=== PATIENT | female | born 2000 | race Caucasian/White ===

== ENCOUNTER 2021-01-09 16:02 | Outpatient (RCR) | payer BC, SELFPAY | END 2021-03-17 23:59 | LOC: IMMUN 16:02 | PROVIDERS: Visit Provider Family Medicine | DX: Z23 Encounter for immunization (principal) | CPT/HCPCS: 0001A; 0002A; 91300 ==

== ENCOUNTER → 2021-09-17 16:14 | Outpatient (CLI) | payer BC, SELFPAY | PROVIDERS: Visit Provider Family Medicine | DX: Z23 Encounter for immunization (principal) ==

== ENCOUNTER 2021-10-08 19:24 | Emergency (ER) | payer BC, SELFPAY ==
[2021-10-08 19:26] VITALS: BP 135/91; PULSE 74; RESP 14; TEMP 36.5; O2SAT 96; BMI 31.4
[2021-10-08] MEDS: Lidocaine/Epi/Tetracaine 50 ML 1 APPLIC TOPICAL (20:28)
--- NOTE | 2021-10-08 22:06 | EDS_ITS ---
HPI History of Present Illness Chief Complaint: Other, Pain/Inj Narrative Narrative: 20-year-old female presents with nasal bone laceration which is superficial as well as nasal bone contusion. She has a lower lip laceration internally and a small superficial external lip laceration. He states he fell while playing basketball. She denies LOC. She is not on any blood thinners. She states she went to urgent care who told her to come to the emergency room. She is not had any epistaxis. She denies any jaw malocclusion. She has no headache or visual complaints. No nausea or vomiting. PFSH PFSH Medical History no medical history Home Medications Control 1 tab PO/SL DAILY 10/08/21 [History Last Taken Unknown] Allergy/AdvReac Type Severity Reaction Status Date / Time No Known Allergies Allergy Verified 10/08/21 19:25 Social History Smoking Status: Never smoker ROS ROS ED Constitutional Constitutional ED: Denies chills or fever(s) Eyes Eyes: Denies blurry vision or change in vision ENT ENT ED: Denies rhinorrhea or sore throat Cardiovascular Cardiovascular: Denies chest pain or palpitations Respiratory/Chest Respiratory/Chest: Denies cough or dyspnea Gastrointestinal Gastrointestinal: Denies abdominal pain or nausea Genitourinary Genitourinary ED: Denies dysuria or hematuria Musculoskeletal Musculoskeletal: Denies arthralgias or myalgias Integumentary Reports other Details: Lower lip laceration, internal lip laceration of lower lip, superficial laceration to nasal bone. ; Denies rash Neurologic Neurologic: Denies headache(s) or weakness EXAM Physical Exam Const Vital Signs: 10/08/21 19:26 Temperature 97.7 F L Temperature Source Temporal Pulse Rate 74 Respiratory Rate 14 Blood Pressure 135/91 H Blood Pressure Mean 105 Pulse Ox 96 Oxygen Delivery Method Room Air Positive well nourished General Appearance ED: NAD HEENT Reports TM's clear HEENT Narrative: Mild swelling of the right side of the proximal nasal bone. There is a superficial laceration overlying the nasal bone which is well approximated. There is mild bleeding here. The nares are patent without epistaxis. No nasal septal hematoma. Tympanic Membrane ED: Yes TM's clear Eyes PERRL and EOMs intact bilaterally Neck full ROM Resp normal respiratory effort and clear to auscultation bilaterally Cardio regular rhythm Rate: regular rate Neuro oriented x3 and CN's II-XII intact bilaterally Sensorium / Orientation: alert and oriented to person Psych mental status grossly normal Skin Skin Narrative: Small 1 cm superficial laceration to the external aspect of the inferior lip which does not cross the vermilion border. There is an internal lip laceration centrally in the lower lip without any active bleeding. Superficial laceration to the nasal bone which is well approximated and mild bleeding is present. MDM MDM MDM Narrative Medical decision making narrative: Patient's nasal bone laceration was mildly weeping and let was placed over this area concerned it may need a suture to stop the bleeding. Her internal lip laceration does not need to be sutured. She is counseled on treatment for this. Her external laceration of her lip is superf icial and also does not need sutures. She is counseled on wound care for these wounds. I did reevaluate her after placing the left on her wound on the nose and this is no longer actively bleeding. There is a mild central excoriation of this but again it is well approximated and I do not believe it needs sutures and since is not actively bleeding allergies have addressed at this time. I do not believe she needs any imaging. I will give her follow-up with ENT if she has any breathing issues. He is amenable to this. Impression: 1. Nasal bone contusion 2. Superficial nasal laceration 3. internal lip laceration lower lip 4. superficial external lip laceration Discharge Plan Triage Chief Complaint: Other, Pain/Inj ED Provider: Jaciel Lowry Dx/Rx/DC Orders Instructions: ED NASAL CONTUSION vs FX No X-ray, ED Laceration Small or ... Prescriptions: No Action Control 1 tab PO/SL DAILY RF: 0 Primary Care Provider: Care Physician,No Primary Referrals: James Barton MD [STAFF PHYSICIAN] - As Needed Care Physician,No Primary [Primary Care Provider] - Disposition Disposition: Home, Self Care
[2021-10-08 22:13] VITALS: BP 132/65; PULSE 89; RESP 18; O2SAT 98
== END 2021-10-08 22:13 | disposition home or self-care (01) ==
PROVIDERS: Emergency Provider Student in an Organized Health Care Education/Training Program
DX: S01.21XA Laceration without foreign body of nose, initial encounter (principal); S01.511A Laceration without foreign body of lip, initial encounter; S01.512A Laceration without foreign body of oral cavity, initial encounter; W19.XXXA Unspecified fall, initial encounter; Y93.67 Activity, basketball; Y92.9 Unspecified place or not applicable
CPT/HCPCS: 99283